=== PATIENT | female | born 1985 | race Caucasian/White ===

== ENCOUNTER 2017-06-26 18:17 | Emergency (ER) | payer BC ==
[2017-06-26] MEDS ORDERED: Ketorolac INJ* 60 MG/2 ML VIAL IM ONE (19:38)
--- NOTE | 2017-06-26 21:09 | RAD ---
INDICATION: LEFT lower extremity pain different from typical varicose vein pain for this patient. COMPARISON: No relevant prior exams available on the [facility] for comparison. TECHNIQUE: Tinsley scale, color Doppler, and spectral analysis of the deep veins of the LEFT lower extremity. Vessel compression, phasicity, and augmentation assessed. REPORT: The LEFT common femoral, great saphenous, profunda femoral, femoral, popliteal, peroneal, and posterior tibial veins are patent. The visualized LEFT gastrocnemius veins appear patent. Patency of the RIGHT common femoral vein documented. IMPRESSION: No evidence for LEFT lower extremity deep venous thrombosis.
[2017-06-26 21:54] VITALS: BP 128/79
--- NOTE | 2017-06-27 06:25 | ED ---
Reinaldo Sampson Rebecca, scribed for Jose Reagan MD on 06/26/17 at 1935 . Lower Extremity - HPI Summary HPI Summary: Pt is a 31 y/o F who presents to ED c/o LLE pain. Pt reports that she has varicose and spider veins which have been worsening lately, accompanied by the pain which began today. Pain is currently moderate, ranked 4/10 and located on the lateral side of the calf. Has not taken any treatment for the pain. Sx aggravated by walking, alleviated by nothing. Additionally notes slightly increased LLE edema. Denies CP, SOB, palpitations. Works on her feet which has not changed recently. No PMHx PE or DVT. Is not on oral contraceptives and has not recently travelled. - History of Current Complaint Chief Complaint: EDExtremityLower Stated Complaint: LT LEG PAIN Time Seen by Provider: 06/26/17 19:17 Hx Obtained From: Patient Hx Last Menstrual Period: 10/14/12 Onset/Duration: Still Present Severity Currently: Moderate Pain Intensity: 4 Pain Scale Used: 0-10 Numeric Timing: Lasting Days - Started today Location: Is Discrete @ - Lateral side of calf of LLE Associated Signs And Symptoms: Positive: Other - Varicose and spider veins Aggravating Factor(s): Ambulation Alleviating Factor(s): Nothing - Allergies/Home Medications Allergies/Adverse Reactions: Allergies Allergy/AdvReac Type Severity Reaction Status Date / Time No Known Allergies Allergy Verified 06/26/17 18:29 Home Medications: Home Medications Multivitamin [Daily Multiple Vitamins] 1 tab PO DAILY 06/26/17 [History Confirmed 06/26/17] PMH/Surg Hx/FS Hx/Imm Hx Endocrine/Hematology History: Denies: Hx Diabetes, Hx Thyroid Disease Respiratory History: Reports: Hx Asthma Infectious Disease History: No Infectious Disease History: Denies: Traveled Outside the [place] in Last 30 Days - Family History Known Family History: Negative: Diabetes - Social History Occupation: Employed Full-time Substance Use Type: Reports: None Review of Systems Negative: Palpitations, Chest Pain Negative: Shortness Of Breath Positive: Edema - LLE, Other - LLE calf pain - lateral side Positive: Other - Varicose and spider veins All Other Systems Reviewed And Are Negative: Yes Physical Exam - Summary Physical Exam Summary: GENERAL: ~Patient is a well developed and nourished F who is lying comfortable in the stretcher. ~Patient is not in any acute respiratory distress. HEAD AND FACE: Normocephalic EYES: PERRLA, EOMI x 2. EARS: Hearing grossly intact. MOUTH: Oropharynx within normal limits. NECK: Supple, trachea is midline, no adenopathy, no JVD, no carotid bruit. CHEST: Symmetric, no tenderness at palpation LUNGS: Clear to auscultation bilaterally. No wheezing or crackles. CVS: Regular rate and rhythm, S1 and S2 present, no murmurs or gallops appreciated. ABDOMEN: Soft, non-tender. Bowel sounds are normal. No abdominal abnormal pulsations. EXTREMITIES: Full ROM in all major joints, no edema, no cyanosis or clubbing. The LLE is tender to palpation, including the calf. Varicose veins bilaterally, left worse than right. NEURO: Alert and oriented x 3. No acute neurological deficits. Speech is normal and follows commands. SKIN: Dry and warm Triage Information Reviewed: Yes Vital Signs On Initial Exam: Initial Vitals Temp Pulse Resp BP Pulse Ox 99.3 F 55 16 110/70 100 06/26/17 18:26 06/26/17 18:26 06/26/17 18:26 06/26/17 18:26 06/26/17 18:26 Vital Signs Reviewed: Yes Diagnostics - Vital Signs Vital Signs Temp Pulse Resp BP Pulse Ox 06/26/17 18:26 99.3 F 55 16 110/70 100 - Laboratory Lab Statement: Any lab studies that have been ordered have been reviewed, and results considered in the medical decision making process. - Ultrasound No standard instances Ultrasound Interpretation: No Acute Changes - Venous Doppler: No evidence for LEFT lower extremity deep venous thrombosis. ED physician reviewed this report. Ultrasound Interpretation Completed By: Radiologist Re-Evaluation - Re-Evaluation First Eval Re-Evaluation Time: 21:39 Comment: Discussed results. Lower Extremity Course/Dx - Course Assessment/Plan: Pt is a 31 y/o F witha PMHx of varicose and spider veins who presents to ED c/o LLE pain since today, currently moderate, ranked 4/10 and located on the lateral side of the calf. Has not taken any treatment for the pain. Sx aggravated by walking. Additionally notes slightly increased LLE edema. Denies CP, SOB, palpitations. Works on her feet which has not changed recently. US was done which was normal. Discussed results with pt and pt will follow up with PCP. - Diagnoses Provider Diagnoses: Leg pain Discharge - Sign-Out/Discharge Documenting (check all that apply): Discharge/Admit/Transfer - Discharge - Discharge Plan Condition: Stable Disposition: HOME Patient Education Materials: Leg Pain (ED) Referrals: Jesenia HERNANDEZ,Edenilson Preston [Primary Care Provider] - 3 Days (Follow up with your Primary care physician to discuss options for varicose vein treatment. ) Additional Instructions: RETURN TO ED FOR ANY RETURNING OR WORSENING SYMPTOMS. The documentation as recorded by the Reinaldo pulliam Rebecca accurately reflects the service I personally performed and the decisions made by , Jose Reagan MD.
== END 2017-06-26 21:53 | disposition home or self-care (01) ==
LOC: ED 18:17
DX: M79.662 Pain in left lower leg (principal); I83.90 Asymptomatic varicose veins of unspecified lower extremity; J45.909 Unspecified asthma, uncomplicated
CPT/HCPCS: 96372; 99282; J1885